=== PATIENT | male | born 2000 | race Two or more races ===

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

== ENCOUNTER 2023-01-07 20:41 | Emergency (ER) | payer MEDICAID ==
[~2023-01-07] VITALS: Ht 172.7 cm; Wt 95.5 kg
[2023-01-07 21:05] VITALS: BP 154/103
[2023-01-08 01:21] VITALS: PULSE 68; RESP 18; TEMP 98; O2SAT 98
[2023-01-08] MEDS ORDERED: KETOROLAC TROMETH 30 MG/ML 1ML VIAL IM ONE (01:45)
[2023-01-08] MEDS ORDERED: IBUP-1455 PO (03:16)
== END 2023-01-08 03:40 | disposition left against medical advice (07) ==
LOC: ER 20:41
DX: M54.59 Other low back pain (principal)
CPT/HCPCS: 72100; 96372; 99283; J1885